=== PATIENT | male | born 1960 | race African-American/Black ===

== ENCOUNTER → 2018-12-27 | Outpatient (CLI) | payer OTHER ==
[~2018-12-27] VITALS: Ht 162.6 cm; Wt 78.5 kg
[~2018-12-27] MED LIST: AVINZA75 MG PO; DIAZEPAM10 M1 PO; FLUTICASONE PRO16 GM NASAL; LIPITOR10 MG PO; LISINOPRIL-HCT1 EAC1 PO; MS CONTIN 30 MG30 M1 PO; NABUMETONE 500500 M1 PO; NORTRIPTYLINE H25 M3 PO; NORTRIPTYLINE H50 MG PO; OXCARBAZEPINE150 MG PO; OXYCODON-ACETA1 EAC1 PO; OXYCODONE HCL15 MG PO; OXYCODONE-APAP1 EAC6 PO; OXYCODONE-APAP1 TAB PO; OXYCONTIN20 M1 PO; OXYCONTIN20 MG PO; OXYCONTIN30 MG PO; Oxycontin PO; PAXIL10 MG PO; PERCOCET 10-321 EACH PO; RELAFEN500 MG PO; REQUIP0.5 MG PO; TIZANIDINE HCL 22 M1 PO; TRILEPTAL150 MG PO; VIAGRA50 MG PO
--- NOTE | ~2018-12-27 | HPC ---
[facility] [place] [address] PAIN MANAGEMENT CONSULTATION Name: GARETH ALEGRIA Room #: OTF JuniorDaniela#: [id number] Admission: 12/27/18 ������������������ Attend Phys: Gonzalez Rosado MD Discharge: ������������������ Date of : 58 Report #: [id number] THIS REPORT FOR: //name// CC: TYRA Rosado DATE OF SERVICE: 12/27/2018 Followup visit for severe right ankle pain. The patient returns to pain clinic today complaining of pain in his right ankle. No other pain generators identified today. He has an arthritic ankle and has been on medications from Dr. Alegre for treatment of his chronic condition for many years. His highest dose of oxycodone was 30 mg twice daily, OxyContin plus OxyContin IR 15 mg 4 times daily, that was in 2013. I have been slowly tapering him per the CDC guidelines and I spent almost 25 minutes with him today to review our goals of reducing his opioid use to the lowest effective dose. He is making nice adjustments without significant problems, coming down to current dose of oxycodone 10/325 four times daily or 60 MME. This is a significant adjustment over the course of the last 5 years. On PQRS review, he has history of osteoarthritis involving the right ankle. His pain intensity reported today as stable 8/10. He is not a fall risk nor has he fallen in the last 3 months. He is not on blood thinning medications, although he does have a history of hypertension and he is under treatment from his primary care physician. He has completed an opioid risk assessment tool in the past. It was not repeated today. We will review his ORT from previous records. SOCIAL HISTORY: He denies use of tobacco. He drinks alcohol socially, 1 beer per week. PHYSICAL EXAMINATION: GENERAL: Pleasant 58-year-old. VITAL SIGNS: Blood pressure is 132/88, heart rate 90, respirations 14, his BMI is 29.7. EXTREMITIES: Moves easily from sitting to standing position, walks with mildly antalgic features. Examination of the right ankle reveals no specific swelling or tenderness. Joint range of motion is good. There is mild tenderness around the subtalar joint. IMPRESSION: Chronic ankle pain with osteoarthritis. RECOMMENDATIONS: 1. I think he should see an ankle specialist and I have recommended Dr. Mil Gil at . Dr. Gil is a personal physician and is considered one of the [facility] [address] [place] [address] PAIN MANAGEMENT CONSULTATION Name: GARETH ALEGRIA [place] Room #: [facility]#: [id number] Admission: 12/27/18 ������������������ Attend Phys: Gonzalez Rosado MD Discharge: ������������������ Date of : 58 Report #: [id number] [facility] [place]. He could give an opinion on his thoughts for treatment and also prognostication for the future. 2. I have spent a long time with him today discussing the CDC guidelines with diagrams and reviewing his morphine milligram equivalent dose. He has done very well in reducing his dose and I have made a recommendation that we reduce his dose once again from oxycodone 10/325 four times daily to oxycodone 7.5/325 four times daily. This would place his MME at 45. I will see him at 3-month intervals for this medication if it is effective. We talked extensively about the opioid crisis in the [facility] and the importance of safeguarding all medications. Other aspects of his agreement have been discussed including one prescribing physician and one pharmacy. We will manage any side effects, apparently, there are none at this point in time. I have talked to him extensively about other pain management techniques, particularly the importance of a daily walking program. This should be helpful for his ankle and should not actually worsen the condition in my opinion. He can use heat and nice and other nonsteroidal anti-inflammatory drugs, intermittently when the pain is severe. Followup visit planned in 3 months. Prescriptions were written under terms of our agreement. ��������������������������������������������� ���������������������������������������� By: ��������������������������������������������� [id number] Gonzalez Rosado MD /nt
[2018-12-27 08:58] VITALS: BP 132/88
--- NOTE | 2018-12-27 09:23 | NUR ---
Pain Clinic Assessment: 1. History of Osteoarthritis: History of Rheumatoid Arthritis: 2. Height: 5 ft. 4 in. 162.6 cm. Weight: 173.0 lb. oz. 78.472 kg. Patient's BMI: 29.7 3. Vital Signs: BP: 132/88 Pulse: 90 Resp: 14 Temp: 02 Sat: 96 ECG Mon: 4. Pain Intensity: 8 5. Fall Risk: Dizziness: N Needs help standing or walking: N Fallen in the last 3 months: N Fall risk comments: 6. Patient on Blood Thinner: None 7. History of Hypertension: Y 8. Opioid Therapy greater than 6 weeks: Y Opiate Contract Signed: 9. Risk Assessment Tool Provided: 10. Functional Assessment Tool: 11. Recreational Drug Use: Unknown Drug Type: Tobacco Use: Never Smoker Tobacco Type: Amount or Packs/day: How Many Years: Alcohol Use: Yes Frequency: Weekly Quant: 1 BEER
== END ==
LOC: PAIN 06:58
DX: M19.071 Primary osteoarthritis, right ankle and foot (principal); G89.29 Other chronic pain; Z79.891 Long term (current) use of opiate analgesic

== ENCOUNTER → 2019-04-04 | Outpatient (CLI) | payer OTHER ==
[~2019-04-04] VITALS: Ht 162.6 cm; Wt 90.7 kg
[~2019-04-04] MED LIST changes: +MOBIC7.5 MG PO
[2019-04-04 09:58] VITALS: BP 121/81
--- NOTE | 2019-04-04 10:34 | NUR ---
Pain Clinic Assessment: 1. History of Osteoarthritis: Not Applicable History of Rheumatoid Arthritis: Not Applicable 2. Height: 5 ft. 4 in. 162.6 cm. Weight: 200.0 lb. oz. 90.720 kg. Patient's BMI: 34.3 3. Vital Signs: BP: 121/81 Pulse: 74 Resp: 16 Temp: 02 Sat: 97 ECG Mon: 4. Pain Intensity: 8 5. Fall Risk: Dizziness: N Needs help standing or walking: N Fallen in the last 3 months: N Fall risk comments: 6. Patient on Blood Thinner: None 7. History of Hypertension: Y 8. Opioid Therapy greater than 6 weeks: Y Opiate Contract Signed: 9. Risk Assessment Tool Provided: LOW-1 10. Functional Assessment Tool: 42/60 11. Recreational Drug Use: Never Drug Type: Tobacco Use: Never Smoker Tobacco Type: Amount or Packs/day: How Many Years: Alcohol Use: Yes Frequency: Special Occasions Quant:
--- NOTE | 2019-04-05 11:30 | HPC ---
[facility] [place] [address] PAIN MANAGEMENT CONSULTATION Name: GARETH ALEGRIA Room #: OTF ALFORD Matteo#: [id number] Admission: 04/04/19 ������������������ Attend Phys: Liz Manzano Discharge: ������������������ Date of : 58 Report #: [id number] THIS REPORT FOR: //name// CC: Liz Rose DATE OF SERVICE: 04/04/2019 CHIEF COMPLAINT: Severe right ankle pain. HISTORY OF PRESENT ILLNESS: This is a pleasant 58-year-old gentleman who returned to the pain clinic today for his medication management that he uses to treat his right ankle pain. He does have an arthritic ankle that had surgery in the past and he has had ongoing pain ever since then. He tells me it is intermittent, achy, sharp pain in his heels and ankles, rating at 8/10 today, worse with standing and walking. His medication he does find helpful and also resting. He tells me that he tries to be as active as possible, but the pain makes him have to sit after a while. He tells me occasionally his pain will radiate up to his knees. He denies any problems with constipation or overmedicated feeling. He tells me he did not see Dr. Gil that Dr. Rosado had spoken of getting a second opinion from at since our last visit. ALLERGIES: THORAZINE AND OPANA. CURRENT MEDICATIONS: Oxycodone 7.5/325 up to 4 times a day, nortriptyline 25 mg at bedtime, Lipitor 10 mg at bedtime, Flonase as needed, Viagra as needed, lisinopril/hydrochlorothiazide daily, Valium 10 mg p.r.n., and oxcarbazepine 150 mg in the morning and 300 at night. PQRS: 1. He has history of osteoarthritis in his right ankle. He denies any rheumatoid arthritis. 2. Height is 5 feet 4 inches, weight is 200, BMI is 34. 3. Vital signs: Blood pressure 121/81, pulse is 74, respirations 16, oxygen sat is 97. 4. Pain score is 8/10. 5. Denies dizziness. He does not need help walking, has not fallen in the last 3 months. 6. The patient is not on any blood thinners. He does take medicine for hypertension. 7. Opiate therapy is greater than 6 weeks; therefore, an opioid signed contract is on the chart. His risk assessment tool is low. Functional assessment is 42/60. 8. Recreational drug use, he denies. He is not a smoker and does occasionally drink alcohol. [address] [address] PAIN MANAGEMENT CONSULTATION Name: GARETH ALEGRIA [id number] Admission: 04/04/19 ������������������ Attend Phys: Liz Manzano Discharge: ������������������ Date of : 58 Report #: [id number] We did check the prescription monitoring system. The patient is filling appropriately from our physician and he is due for his medication refill today. We will check a drug screen on him in the past since he does not have one on this chart, but he had been a patient at [facility], so I am unsure of his last screen. PHYSICAL EXAMINATION: GENERAL: This is a 58-year-old gentleman who is alert and orientated, appears his stated age and is a good historian. HEENT: Normocephalic, atraumatic. Extraocular eye muscles are intact. Mucous membranes are moist. EXTREMITIES: He moves easily from sitting to standing position, walks with a mildly antalgic gait. His right ankle reveals no swelling or tenderness. He has mild tenderness around his subtalar joint. IMPRESSION: 1. Chronic ankle pain with osteoarthritis. 2. Medication management under terms of written opioid agreement. We reviewed the fact that opiate medications are being used to provide analgesia adequate to support activities of daily living, not attempting to achieve a specific pain score on the 0-10 Visual Analog Scale. The current opiate medications are providing sufficient analgesia to allow the patient to participate in activities of daily living. The patient is not exhibiting any aberrant behavior suggestive of drug diversion. The patient is not having any adverse reactions to medications. The patient is not suffering from daytime somnolence or mental acuity changes. The patient is managing opiate-induced constipation with appropriate urhf-wkg-rfkttsu agents and dietary considerations. The patient was counseled on concern for caution with operating a motor vehicle while using opiate medications. A physical exam was performed and the patient's functional status was evaluated. All patients with back pain were advised against the bed rest greater than 4 days and were advised to return to normal activities. Pain score assessment was noted and the treatment plan was reviewed with the patient. All current medications, both prescribed and OTC were reviewed and reconciled on the electronic medical record. Tobacco screening was accomplished and smoking cessation was advised when indicated. BMI was noted and diet/exercise modification was recommended for all patients following outside normal parameters. I reviewed with the patient today their responsibilities to safeguard prescription medications, reviewed their responsibility to utilize medications only as prescribed by the physician. They are to seek and receive pain medications only from 1 physician group ([facility]). They are to use 1 pharmacy and keep the clinic informed if they change pharmacies. Their [address] [address] PAIN MANAGEMENT CONSULTATION Name: GARETH ALEGRIA Room #: [facility]#: [id number] Admission: 04/04/19 ������������������ Attend Phys: Liz Manzano Discharge: ������������������ Date of : 58 Report #: [id number] responsibilities include making followup visits in a timely fashion and to avoid abrupt discontinuation of medication usage. Their responsibilities further include bringing their medications (bottles from the pharmacy with residual pills) to the visit for possible confirmation of pill counts and the patient understands it is their responsibility to submit to random drug screens to ensure both that the medications prescribed are present, and that no other controlled substances are present. All prescriptions provided today were generated electronically. PLAN: 1. We discussed treatment options with the patient today. Dr. Rosado had encouraged the patient to get a second opinion, to see Dr. Gil at [facility]. Dr. Rosado did come and see the patient again today. He decided that he would not probably be a surgical candidate, so it was up to the patient if he did want a second opinion. 2. The patient tells me that he needs a refill of his oxcarbazepine. He was in the past taking 300 mg b.i.d., currently he has been taking 150 in the morning and 300 at night. He wishes a refill for that level though he has had increased pain. He wishes to stay at the lower dose. Script was given today for 90 pills with 2 additional refills. 3. The patient did discuss that we had decreased his opioids at his last visit. I discussed the CDC guidelines trying to keep people at 50 morphine milliequivalent or less. He is currently 45 at this current dose. The patient verbalizes understanding and agrees to stay at the current Percocet 7.5/325 four tablets a day. Scripts given for 3 months of this medication. 4. We did talk about an anti-inflammatory and elected to start meloxicam 7.5 mg b.i.d. The patient was instructed that if he did experience any GI discomfort, to stop taking the medication and not to take Aleve or ibuprofen while on this medication. The patient is seen in collaboration with Dr. Gonzalez Rosado who did see the patient today. ��������������������������������������������� <ELECTRONICALLY SIGNED> ���������������������������������������� By: Liz Manzano ��������������������������������������������� 04/05/19 1130 [id number] [id number] Liz Manzano /nt
== END ==
LOC: PAIN 06:44
DX: M19.071 Primary osteoarthritis, right ankle and foot (principal); G89.29 Other chronic pain; Z79.899 Other long term (current) drug therapy

== ENCOUNTER → 2019-07-04 | Outpatient (CLI) | payer OTHER ==
[~2019-07-04] VITALS: Ht 162.6 cm; Wt 87.5 kg
[2019-07-04 10:18] VITALS: BP 94/57
--- NOTE | 2019-07-04 10:20 | NUR ---
Pain Clinic Assessment: 1. History of Osteoarthritis: Not Applicable History of Rheumatoid Arthritis: Not Applicable 2. Height: 5 ft. 4 in. 162.6 cm. Weight: 193.0 lb. oz. 87.544 kg. Patient's BMI: 33.1 3. Vital Signs: BP: 94/57 Pulse: 86 Resp: 16 Temp: 02 Sat: 97 ECG Mon: 4. Pain Intensity: 8 5. Fall Risk: Dizziness: N Needs help standing or walking: N Fallen in the last 3 months: N Fall risk comments: 6. Patient on Blood Thinner: None 7. History of Hypertension: Y 8. Opioid Therapy greater than 6 weeks: Y Opiate Contract Signed: 9. Risk Assessment Tool Provided: LOW-1 10. Functional Assessment Tool: 42/60 11. Recreational Drug Use: Never Drug Type: Tobacco Use: Never Smoker Tobacco Type: Amount or Packs/day: How Many Years: Alcohol Use: Yes Frequency: Quant:
--- NOTE | 2019-07-05 07:28 | HPC ---
[facility] [address] [place] [address] PAIN MANAGEMENT CONSULTATION Name: GARETH ALEGRIA Room #: OTF ALFORD Matteo#: [id number] Admission: 07/04/19 ������������������ Attend Phys: Liz Manzano Discharge: ������������������ Date of : 58 Report #: [id number] THIS REPORT FOR: //name// CC: Liz Rose DATE OF SERVICE: 07/04/2019 CHIEF COMPLAINT: Severe right ankle pain. HISTORY OF PRESENT ILLNESS: This is a very pleasant 58-year-old gentleman who returns to the pain clinic today for refill of his medications that he uses to help treat his arthritic right ankle. He has had surgery in the past and has had ongoing pain that is intermittent, sharp, aching and tender. He tells me his pain score is an 8/10 today. It is bad because of the weather is changing. The last week, he was having decreased pain. It is worse with walking and standing, but he finds his Percocet and meloxicam very beneficial as well as his Trileptal. He would like a refill of these medications today. ALLERGIES: THORAZINE and OPANA. CURRENT LIST OF MEDICATIONS: Trileptal 150 mg 1 in the morning and 2 at night,. meloxicam 7.5 mg b.i.d. p.r.n., oxycodone 7.5 mg 4 times a day, nortriptyline 25 mg daily, atorvastatin 10 mg at bedtime, lisinopril/hydrochlorothiazide 20/12.5 daily, Valium 10 mg p.r.n. PATIENT'S PQRS: 1. He has osteoarthritis in his right ankle. Denies any rheumatoid arthritis. 2. Height is 5 feet 4 inches, weight is 193, which is down 7 pounds since his last visit. His BMI is 33. 3. Vital signs 94/57, pulse is 86, respirations 16, oxygen sat 97%. Pain score 8/10. 4. Fall risk. Denies dizziness, does not need help walking or standing, has not fallen in the last 3 months. The patient is not on any blood thinners, but does take medicine for hypertension. His opioid therapy is greater than 6 weeks; but his functional assessment is 42/60 and his risk assessment is low. 5. Recreational drug use, he denies. He is not a smoker and occasionally drinks alcohol. We did check the prescription monitoring system. He is filling appropriately for his medication and is due today. We will check a random drug screen on this patient today since it has been greater than one year. PHYSICAL EXAMINATION: GENERAL: This is a 58-year-old gentleman who is alert and orientated. He appears his stated age, placing his current pain score at 8/[place] [address] PAIN MANAGEMENT CONSULTATION Name: GARETH ALEGRIA [place] Room #: REG [place] Felipe#: [id number] Admission: 07/04/19 ������������������ Attend Phys: Liz Manzano Discharge: ������������������ Date of : 58 Report #: [id number] HEENT: Normocephalic, atraumatic. Extraocular muscles are intact. Mucous membranes are moist. He is wearing glasses. EXTREMITIES: He moves from sitting to standing without any difficulty. He does have a mild antalgic gait. No swelling in his right ankle today. He has mild tenderness in his subtalar joint. IMPRESSION: 1. Chronic ankle pain with osteoarthritis. 2. Management of medications under terms of written opioid agreement. We reviewed the fact that opiate medications are being used to provide analgesia adequate to support activities of daily living, not attempting to achieve a specific pain score on the 0-10 Visual Analog Scale. The current opiate medications are providing sufficient analgesia to allow the patient to participate in activities of daily living. The patient is not exhibiting any aberrant behavior suggestive of drug diversion. The patient is not having any adverse reactions to medications. The patient is not suffering from daytime somnolence or mental acuity changes. The patient is managing opiate-induced constipation with appropriate fhqg-mef-yjtykai agents and dietary considerations. The patient was counseled on concern for caution with operating a motor vehicle while using opiate medications. A physical exam was performed and the patient's functional status was evaluated. All patients with back pain were advised against the bed rest greater than 4 days and were advised to return to normal activities. Pain score assessment was noted and the treatment plan was reviewed with the patient. All current medications, both prescribed and OTC were reviewed and reconciled on the electronic medical record. Tobacco screening was accomplished and smoking cessation was advised when indicated. BMI was noted and diet/exercise modification was recommended for all patients following outside normal parameters. I reviewed with the patient today their responsibilities to safeguard prescription medications, reviewed their responsibility to utilize medications only as prescribed by the physician. They are to seek and receive pain medications only from 1 physician group ([facility]). They are to use 1 pharmacy and keep the clinic informed if they change pharmacies. Their responsibilities include making followup visits in a timely fashion and to avoid abrupt discontinuation of medication usage. Their responsibilities further include bringing their medications (bottles from the pharmacy with residual pills) to the visit for possible confirmation of pill counts and the patient understands it is their responsibility to submit to random drug screens to ensure both that the medications prescribed are present, and that no other controlled substances are present. All prescriptions provided today were generated electronically. [facility] [address] [place] [address] PAIN MANAGEMENT CONSULTATION Name: GARETH ALEGRIA Room #: OTF DhaliwalDanielaSchuylerDaniela#: [id number] Admission: 07/04/19 ������������������ Attend Phys: Liz Manzano Discharge: ������������������ Date of : 58 Report #: [id number] PLAN: 1. We discussed treatment options with the patient today. The patient is doing reasonably well on his medications. He is currently taking Percocet 7.5/325 four tablets a day. His current morphine milliequivalents is 45 according to the CDC guidelines. We will continue those for 3 additional months and scripts were written for 120 to be released today, 4-week and 8-week. 2. The patient to continue his Trileptal 150 mg 1 in the morning and 2 at night, 90 pills given with 2 additional refills. 3. The patient is not needing his meloxicam filled today. He does take that on as needed basis. He is conscientious about taking that medication with food because it does cause some GI discomfort for him, so therefore he does take it on an as needed basis, but finds it very beneficial when his pain does flare. 4. We will check a random drug screen on this patient today since it had been greater than a year since our records indicate one was given. 5. The patient tells me he has been drinking smoothies and trying to lose weight, which he has decreased 7 pounds since our last visit. I encouraged him to continue this since he tells me he is feeling good. 6. The patient is seen in collaboration with Dr. Gonzalez Rosado today. ��������������������������������������������� <ELECTRONICALLY SIGNED> ���������������������������������������� By: Liz Manzano ��������������������������������������������� 07/05/19 0728 [id number] Liz Manzano /nt
== END ==
LOC: PAIN 06:42
DX: M19.071 Primary osteoarthritis, right ankle and foot (principal); Z79.891 Long term (current) use of opiate analgesic; Z88.8 Allergy status to other drugs, medicaments and biological substances; Z79.899 Other long term (current) drug therapy

== ENCOUNTER → 2019-09-30 | Outpatient (CLI) | payer OTHER ==
[~2019-09-30] VITALS: Ht 162.6 cm; Wt 91.0 kg
[2019-09-30 10:45] VITALS: BP 121/85
--- NOTE | 2019-09-30 11:05 | NUR ---
Pain Clinic Assessment: 1. History of Osteoarthritis: Not Applicable History of Rheumatoid Arthritis: Not Applicable 2. Height: 5 ft. 4 in. 162.6 cm. Weight: 200.6 lb. oz. 90.992 kg. Patient's BMI: 34.4 3. Vital Signs: BP: 121/85 Pulse: 70 Resp: 16 Temp: 02 Sat: 97 ECG Mon: 4. Pain Intensity: 9 5. Fall Risk: Dizziness: N Needs help standing or walking: N Fallen in the last 3 months: N Fall risk comments: 6. Patient on Blood Thinner: None 7. History of Hypertension: Y 8. Opioid Therapy greater than 6 weeks: Y Opiate Contract Signed: 9. Risk Assessment Tool Provided: LOW-1 10. Functional Assessment Tool: 42/60 11. Recreational Drug Use: Never Drug Type: Tobacco Use: Never Smoker Tobacco Type: Amount or Packs/day: How Many Years: Alcohol Use: Yes Frequency: Quant:
--- NOTE | 2019-10-01 11:19 | HPC ---
[facility] [place] [address] PAIN MANAGEMENT CONSULTATION Name: GARETH ALEGRIA Room #: OTF JuniorDaniela#: [id number] Admission: 09/30/19 Attend Phys: Liz Manzano Discharge: Date of : 58 Report #: [id number] THIS REPORT FOR: //name// CC: Liz Rosado MD DATE OF SERVICE: 09/30/2019 CHIEF COMPLAINT: Right ankle pain. HISTORY OF PRESENT ILLNESS: This is a very pleasant 58-year-old gentleman who returns to the pain clinic today for refill of his medications that he uses to help treat his ongoing arthritic right ankle. He has had surgery in the past, but it continues to be quite problematic causing him intermittent achy and sharp pain, today it is also very tender. He is rating it a 9/10 today, worse with standing and walking, but since the weather does affect it that is why he is having increase in pain today. For part of the visit, he did have his shoe off, complaining of burning pain in his foot as well. He feels his medications are beneficial as well as resting. He denies any problems with constipation. He does report that he takes his medicine in a liquid form. He lets it dissolve and that helps prevent constipation per his report. I encouraged him to try to take it whole and just drink plenty of liquids so as not to alter the medication. ALLERGIES: THORAZINE and OPANA. CURRENT LIST OF MEDICATIONS: Oxycodone 7.5/325 q.i.d. p.r.n., Trileptal 150 in the morning and 300 at night, meloxicam p.r.n., nortriptyline, Lipitor, Flonase, lisinopril, and diazepam. PQRS: 1. He has arthritic right ankle. Denies any rheumatoid arthritis. 2. Height is 5 feet 4 inches, weight is 200, BMI is 34. 3. Vital signs 121/85, pulse is 70, respirations 16, oxygen sat is 97. 4. Pain score is 9/10. 5. Denies dizziness, does not need help walking or standing, has not fallen in the last 3 months. 6. Opioid therapy is greater than 6 weeks; therefore, an opioid signed contract is on the chart. Risk assessment tool is low. Functional assessment is 42/60. 7. Recreational drug use, he denies. He is not a smoker and occasionally drinks alcohol. According to the prescription monitoring system, the patient is filling appropriately at his pharmacy and is due to [place] [address] PAIN MANAGEMENT CONSULTATION Name: GARETH ALEGRIA Room #: REG Campbell Felipe#: [id number] Admission: 09/30/19 Attend Phys: Liz Manzano Discharge: Date of : 58 Report #: [id number] is a recent drug screen on the chart that is appropriate as well. The patient reports he does safeguard his medications. PHYSICAL EXAMINATION: GENERAL: This is alert and orientated 58-year-old gentleman who appears his stated age, placing his current pain score today at 9/10. He is a good historian. HEENT: Normocephalic, atraumatic. Extraocular eye muscles are intact. Mucous membranes are moist. EXTREMITIES: He moves from sitting to standing without difficulty. He has antalgic gait. He has tenderness and burning in his right ankle along the subtalar joint of his right ankle. No swelling noted today in his ankle. IMPRESSION: 1. Chronic ankle pain with osteoarthritis. 2. Multiple status post right ankle surgeries. 3. Management of high risk medications under terms of written opioid agreement. We reviewed the fact that opiate medications are being used to provide analgesia adequate to support activities of daily living, not attempting to achieve a specific pain score on the 0-10 Visual Analog Scale. The current opiate medications are providing sufficient analgesia to allow the patient to participate in activities of daily living. The patient is not exhibiting any aberrant behavior suggestive of drug diversion. The patient is not having any adverse reactions to medications. The patient is not suffering from daytime somnolence or mental acuity changes. The patient is managing opiate-induced constipation with appropriate qspe-ohv-ppiouwd agents and dietary considerations. The patient was counseled on concern for caution with operating a motor vehicle while using opiate medications. PLAN 1. We discussed treatment options with the patient today. The patient finds his medication very beneficial. We will refill his oxycodone 7.5/325 up to 4 tablets a day. This currently places him at 45 morphine mEq according to the CDC guidelines well under their 50 that they are encouraging. 2. We will refill this medicine for 3 months. 3. I will refill his Trileptal 150 mg 1 in the morning, 2 at night, #90 with 2 additional refills. The patient finds this very beneficial in the burning pain of his right foot. 4. I encouraged the patient not to dissolve his medication to take it as he states it helps with constipation. I encouraged him to take them whole and just to drink plenty of liquids to aid in his constipation issues. He verbalizes [facility] [address] [place] [address] PAIN MANAGEMENT CONSULTATION Name: GARETH ALEGRIA Room #: [facility] [id number] Admission: 09/30/19 Attend Phys: Liz Manzano Discharge: Date of : 58 Report #: [id number] understanding. 5. The patient is seen in collaboration with Dr. Gonzalez Rosado today. <ELECTRONICALLY SIGNED> By: Liz Manzano 10/01/19 1119 1132 2315 Liz Manzano /hiral
== END ==
LOC: PAIN 06:51
DX: M25.571 Pain in right ankle and joints of right foot (principal); M19.90 Unspecified osteoarthritis, unspecified site; Z79.891 Long term (current) use of opiate analgesic

== ENCOUNTER → 2019-12-30 | Outpatient (CLI) | payer OTHER ==
[~2019-12-30] VITALS: Ht 162.6 cm; Wt 88.6 kg
[2019-12-30 10:27] VITALS: BP 121/84
--- NOTE | 2019-12-30 10:50 | NUR ---
Pain Clinic Assessment: 1. History of Osteoarthritis: Not Applicable History of Rheumatoid Arthritis: Not Applicable 2. Height: 5 ft. 4 in. 162.6 cm. Weight: 195.4 lb. oz. 88.633 kg. Patient's BMI: 33.5 3. Vital Signs: BP: 121/84 Pulse: 81 Resp: 16 Temp: 02 Sat: 97 ECG Mon: 4. Pain Intensity: 8 5. Fall Risk: Dizziness: N Needs help standing or walking: N Fallen in the last 3 months: N Fall risk comments: 6. Patient on Blood Thinner: None 7. History of Hypertension: Y 8. Opioid Therapy greater than 6 weeks: Y Opiate Contract Signed: 03/23/10 9. Risk Assessment Tool Provided: mod-6 10. Functional Assessment Tool: 11. Recreational Drug Use: Never Drug Type: Tobacco Use: Never Smoker Tobacco Type: Amount or Packs/day: How Many Years: Alcohol Use: Yes Frequency: Special Occasions Quant: occasional beer
--- NOTE | 2019-12-31 08:06 | HPC ---
[facility] [place] [address] PAIN MANAGEMENT CONSULTATION Name: GARETH ALEGRIA Room #: REG ROCÍO JuniorDaniela#: [id number] Admission: 12/30/19 Attend Phys: Liz Manzano Discharge: Date of : 58 Report #: [id number] THIS REPORT FOR: cc: Stepan Kapadia MD, Todd MD Hocker,Liz MAYER ~ DATE OF SERVICE: 12/30/2019 CHIEF COMPLAINT: Right ankle pain. HISTORY OF PRESENT ILLNESS: This is a very pleasant 59-year-old gentleman who returns to the pain clinic today for refill of his medications for his right ankle pain. It does radiate upward towards his knee at times. Today, he is reporting an increase in pain due to weather changes at an 8/10. He currently has his shoe off due to the pressure on his ankle. His pain is increased with walking and standing. He does find the medication, especially the oxcarbazepine very beneficial in controlling his pain. He would like refills of this medication. He denies any problems with constipation or daytime sleepiness. The patient does inform us that his quite suddenly in September as a result of trauma. He has been trying to work through his grief and has ongoing process for him. He reports his pain has been increased slightly due to this as well. ALLERGIES: THORAZINE and OPANA. CURRENT MEDICATIONS: Oxycodone 7.5/325, oxcarbazepine 150 mg, meloxicam, nortriptyline, atorvastatin, Lipitor, hydrochlorothiazide, diazepam. PQRS: 1. He has arthritic changes in his ankle. Denies any rheumatoid arthritis. 2. Height is 5 feet 4 inches, weight is 195, BMI is 33. 3. Vital signs, 121/84, pulse is 81, respirations 16, oxygen sat is 97. Pain score 8/10. 4. Fall risk. Denies dizziness, does not need help walking or standing, has not fallen in the last 3 months. The patient is not on any blood thinners, does take medicine for hypertension. His opioid therapy is greater than 6 weeks; therefore, an opioid signed contract is on the chart. Risk assessment is moderate. Functional assessment is 41/70. 5. Recreational drug use, he denies. He is not a smoker and occasionally drinks alcohol. According to the prescription monitoring system, the patient has been filling his medications appropriately in a timely fashion by Dr. Gonzalez Rosado. His current morphine mEq per day according to the CDC guidelines of 45. He does [address] [address] PAIN MANAGEMENT CONSULTATION Name: GARETH ALEGRIA [facility] #: [facility]ilia[facility] [id number] Admission: 12/30/19 Attend Phys: Liz Manzano Discharge: Date of : 58 Report #: [id number] report he safeguards his meds at all times. There is a recent drug screen on the chart that is appropriate. It does show gabapentin, he was given out at the Emergency Room after a significant bee stings. PHYSICAL EXAMINATION: GENERAL: This is alert and orientated, slightly depressed 59-year-old gentleman who appears his stated age, placing his current pain score at 8/10 today. HEENT: Normocephalic, atraumatic. Extraocular eye muscles are intact. Mucous membranes are moist. EXTREMITIES: Has tenderness and burning in his right ankle, notes along his subtalar joint of his right ankle. No swelling noted. Tenderness from his shoe. Pain is increased with walking. He has slightly antalgic gait. IMPRESSION: 1. Chronic ankle pain with osteoarthritis. 2. Multiple surgeries of his right ankle with increased pain. 3. Management of high risk medications under terms of written opioid agreement. We reviewed the fact that opiate medications are being used to provide analgesia adequate to support activities of daily living, not attempting to achieve a specific pain score on the 0-10 Visual Analog Scale. The current opiate medications are providing sufficient analgesia to allow the patient to participate in activities of daily living. The patient is not exhibiting any aberrant behavior suggestive of drug diversion. The patient is not having any adverse reactions to medications. The patient is not suffering from daytime somnolence or mental acuity changes. The patient is managing opiate-induced constipation with appropriate ljvz-qhb-rxyomlj agents and dietary considerations. The patient was counseled on concern for caution with operating a motor vehicle while using opiate medications. A physical exam was performed and the patient's functional status was evaluated. All patients with back pain were advised against the bed rest greater than 4 days and were advised to return to normal activities. Pain score assessment was noted and the treatment plan was reviewed with the patient. All current medications, both prescribed and OTC were reviewed and reconciled on the electronic medical record. Tobacco screening was accomplished and smoking cessation was advised when indicated. BMI was noted and diet/exercise modification was recommended for all patients following outside normal parameters. I reviewed with the patient today their responsibilities to safeguard prescription medications, reviewed their responsibility to utilize medications only as prescribed by the physician. They are to seek and receive pain medications only from 1 physician group ([facility]). They are to use 1 pharmacy and keep the clinic informed if they change pharmacies. Their responsibilities include making followup visits in a timely fashion and to avoid [address] [address] PAIN MANAGEMENT CONSULTATION Name: GARETH ALEGRIA Room #: REG [facility]#: [id number] Admission: 12/30/19 Attend Phys: Liz Manzano Discharge: Date of : 58 Report #: [id number] abrupt discontinuation of medication usage. Their responsibilities further include bringing their medications (bottles from the pharmacy with residual pills) to the visit for possible confirmation of pill counts and the patient understands it is their responsibility to submit to random drug screens to ensure both that the medications prescribed are present, and that no other controlled substances are present. All prescriptions provided today were generated electronically. PLAN: 1. We discussed treatment options with the patient today. The patient finds his medication very beneficial, especially his Trileptal. He reports that significantly decreases his burning. It does help him with sleep at night as well. He would like refills of his medication. We will electronically send his oxcarbazepine 150 mg #90 with two additional refills. The patient takes 1 in the morning and 2 at night, oxycodone 7.5/325, #120 for 3 months. The patient is not currently needing meloxicam script today. 2. The patient is seen today in collaboration with Dr. Gonzalez Rosado who did see the patient as well. <ELECTRONICALLY SIGNED> By: Liz Manzano 12/31/19 0806 1133 2315 Liz Manzano /hiral
== END ==
LOC: PAIN 06:39
DX: M19.071 Primary osteoarthritis, right ankle and foot (principal); F11.20 Opioid dependence, uncomplicated; Z88.1 Allergy status to other antibiotic agents; Z88.8 Allergy status to other drugs, medicaments and biological substances; Z79.84 Long term (current) use of oral hypoglycemic drugs; Z79.899 Other long term (current) drug therapy

== ENCOUNTER → 2020-03-30 | Outpatient (CLI) | payer OTHER | LOC: PAIN 07:09 | DX: M19.071 Primary osteoarthritis, right ankle and foot (principal); G89.29 Other chronic pain; F11.90 Opioid use, unspecified, uncomplicated; Z88.8 Allergy status to other drugs, medicaments and biological substances; Z79.899 Other long term (current) drug therapy ==

== ENCOUNTER → 2020-06-23 | Outpatient (CLI) | payer OTHER ==
[~2020-06-23] VITALS: Ht 162.6 cm; Wt 83.4 kg
[2020-06-23 08:15] VITALS: BP 109/64
--- NOTE | 2020-06-23 14:09 | HPC ---
[facility] [place] [address] PAIN MANAGEMENT CONSULTATION Name: GARETH ALEGRIA Room #: OTF Felipe#: [id number] Admission: 06/23/20 Attend Phys: Liz Manzano Discharge: Date of : 58 Report #: [id number] THIS REPORT FOR: cc: Jaswant Rose MD, Michael B. MD Hocker,Liz MAYER ~ CC: Gonzalez Rosado MD DATE OF SERVICE: 06/23/2020 CHIEF COMPLAINT: Right ankle pain, bilateral leg pain. HISTORY OF PRESENT ILLNESS: This is a 59-year-old gentleman who returns to the pain clinic today for refill of his opioid medications that he uses to help treat his ongoing right ankle pain. Today, he is also complaining of bilateral leg pain. He feels that they are achy. He feels like his nerves are bothersome today in both his legs, rating his pain score of 10. He states it is worse with walking. The pain has been worse the past few weeks. He is today requesting an increase in his opioid medication. The patient tells me that he has been taking meloxicam only once a day and has been out of his nortriptyline from his primary care doctor. He does report some sexual dysfunction from the nortriptyline and does not like to take that on a regular basis. The patient also complains of some constipation issues today. ALLERGIES: THORAZINE AND OXYMORPHONE. CURRENT MEDICATIONS: Oxycodone 7.5/325 p.r.n., oxcarbazepine 150 mg in the morning and 300 at night, meloxicam, nortriptyline, atorvastatin, lisinopril/hydrochlorothiazide and diazepam. PQRS: 1. He has arthritic changes in his ankle. Denies any rheumatoid arthritis. 2. Height is 5 feet 4 inches, weight is 183, BMI is 31. Vital signs, 109/64, pulse is 103, respirations 16, oxygen sat is 100, pain score is 10/10. Fall risk: Denies dizziness, does not need help walking or standing, has not fallen in the last 3 months. The patient is not on blood thinners, but does take medicine for hypertension. His opioid therapy is greater than 6 weeks; therefore, an opioid signed contract is on the chart. Risk assessment is moderate. Functional assessment is 41/70. 3. Recreational drug use, he denies. He is not a smoker and occasionally drinks alcohol. According to the prescription monitoring system, the patient is filling appropriately with his medications. His morphine mEq is 45 MME per day according to the CDC guidelines. We will check a random drug screen of urine on [address] [address] PAIN MANAGEMENT CONSULTATION Name: OTF ALEGRIAJUAN ANTONIO Onofre Room #: OTF Felipe#: [id number] Admission: 06/23/20 Attend Phys: Liz Manzano Discharge: Date of : 58 Report #: [id number] this patient today. PHYSICAL EXAMINATION: GENERAL: This is a well-developed, well-nourished, alert and orientated 59-year-old gentleman who appears stated age, placing his current pain score 10/10. HEENT: Normocephalic, atraumatic. Extraocular eye muscles are intact. He is wearing a mask. EXTREMITIES: He has burning and tenderness in his bilateral legs today and pain in his right ankle along the subtalar joint. Pain is increased with ambulation. He has a slightly antalgic gait. He moves easily from a sitting to standing position. IMPRESSION: 1. Chronic ankle pain with osteoarthritis. 2. Management of high-risk medications under terms of written opioid agreement. We reviewed the fact that opiate medications are being used to provide analgesia adequate to support activities of daily living, not attempting to achieve a specific pain score on the 0-10 Visual Analog Scale. The current opiate medications are providing sufficient analgesia to allow the patient to participate in activities of daily living. The patient is not exhibiting any aberrant behavior suggestive of drug diversion. The patient is not having any adverse reactions to medications. The patient is not suffering from daytime somnolence or mental acuity changes. The patient is managing opiate-induced constipation with appropriate chcz-xwr-cyntuxd agents and dietary considerations. The patient was counseled on concern for caution with operating a motor vehicle while using opiate medications. PLAN: 1. We discussed treatment options with the patient today. I explained to him that we are not able to increase his opioid medications. He is where the CDC recommends he be. I encouraged him instead to use his meloxicam twice a day as prescribed. The patient has not been taking his full dose, see if that does decrease some of his inflammation in his back that may be causing numbness and tingling in his lower extremities. I also encouraged him to start his nortriptyline again. The patient reports some sexual dysfunction from that medication. I explained that maybe he can take that on an as needed basis, but also reminded him that opioids can cause some of those side effects as well. 2. I encouraged the patient to increase his fluid intake and possibly take a stool softener at night to help with some of his constipation issues that he is experiencing, reminding him as well increase in opioids would increase constipation issues. 3. Today, we will send his oxycodone 7.5/325, #120, to the pharmacy for today 4 and 8-week supply. These will be sent by Dr. Kenny Alegre who is covering for Dr. Rosado today. [facility] [address] [place] [address] PAIN MANAGEMENT CONSULTATION Name: GARETH ALEGRIA Room #: [facility]#: [id number] Admission: 06/23/20 Attend Phys: Liz Manzano Discharge: Date of : 58 Report #: [id number] 4. The patient did provide us with a urine specimen for a random screen today. The patient will return in followup in 3 months. At that time, I reminded him to make an patient appointment on the Dr. Rosado day and not Dr. Kenny Alegre who is covering today. <ELECTRONICALLY SIGNED> By: Liz Manzano 06/23/20 1409 [id number] [id number] Liz Manzano /hiral
== END ==
LOC: PAIN 06:49
PROVIDERS: ATTEND Clinical Nurse Specialist Adult Health
DX: M19.072 Primary osteoarthritis, left ankle and foot (principal); M79.604 Pain in right leg; M79.605 Pain in left leg; F11.20 Opioid dependence, uncomplicated; Z88.8 Allergy status to other drugs, medicaments and biological substances; Z79.899 Other long term (current) drug therapy

== ENCOUNTER → 2020-09-24 | Outpatient (CLI) | payer OTHER ==
--- NOTE | ~2020-09-24 | HPC ---
[facility] [place] [address] PAIN MANAGEMENT CONSULTATION Name: GARETH ALEGRIA Room #: OTF JuniorDaniela#: [id number] Admission: 09/24/20 Attend Phys: Liz Manzano Discharge: Date of : 58 Report #: [id number] THIS REPORT FOR: cc: Jaswant Rose MD, Michael B. MD Hocker, Amanda CNS ~ CC: Liz Rosado MD DATE OF SERVICE: 09/24/2020 This is a telemedicine appointment that the patient has consented to due to COVID symptoms from 09:45-10:05. CHIEF COMPLAINT: Right ankle pain, bilateral leg pain. HISTORY OF PRESENT ILLNESS: This is a very pleasant 59-year-old that I am speaking with via the telephone for his telemedicine appointment. The patient started experiencing a headache and has a cough in the last couple of days. He reports to me that he does have an appointment to be COVID tested on the that was his earliest appointment time for testing. He has not been running a fever. The patient states some of his symptoms have subsided slightly, but he is still going to follow up with testing. The patient does report to me a pain score of 8/10 today in his right ankle. He reports that it is worse due to the weather changes, which do aggravate his pain as well as prolonged standing and walking. He does believe the medications are beneficial as well as his adjunct medicines of meloxicam and Trileptal. The patient reports he recently started probiotics on a daily basis and feels that this has been very beneficial in helping any constipation issues and no longer taking any kxab-fgo-abvvizy medicines for constipation. ALLERGIES: THORAZINE AND OXYMORPHONE. CURRENT MEDICATIONS: Oxycodone 7.5/325, oxcarbazepine 150 in the morning and 300 at night, meloxicam, nortriptyline, atorvastatin, lisinopril/hydrochlorothiazide, diazepam and probiotic PQRS: 1. The patient has arthritic changes in his right ankle. Denies any rheumatoid arthritis. 2. Height, weight and vital signs are deferred due to a Telemed appointment. 3. The patient denies dizziness. He does not need help with walking, has not fallen in the last 3 months. The patient is not on any blood thinners, but he does [place] [address] PAIN MANAGEMENT CONSULTATION Name: GARETH ALEGRIA Room #: REG ROCÍO Matteo#: [id number] Admission: 09/24/20 Attend Phys: Liz Manzano Discharge: Date of : 58 Report #: [id number] 4. Opioid therapy is greater than 6 weeks; therefore, an opioid signed contract is on the chart. Risk assessment is moderate and functional assessment is 41/70. 5. The patient denies recreational drug use, he is not a smoker and occasionally drinks alcohol. According to the prescription monitoring system, the patient is due to fill his medications today. He does fill them in a timely fashion. He does take benzodiazepine and Valium from his primary doctor that he has been stable on as well and is cautious about the interactions. His morphine milliequivalent is 45 MME. PHYSICAL EXAMINATION: This is a review of systems. The patient reports a slight headache in his temporal area today and a nonproductive cough, also reports throbbing in his right ankle that is present today. IMPRESSION: 1. Chronic ankle pain with osteoarthritis. 2. Management of high risk medications under terms of written opioid agreement. 3. Possible COVID experiencing symptoms. We reviewed the fact that opiate medications are being used to provide analgesia adequate to support activities of daily living, not attempting to achieve a specific pain score on the 0-10 Visual Analog Scale. The current opiate medications are providing sufficient analgesia to allow the patient to participate in activities of daily living. The patient is not exhibiting any aberrant behavior suggestive of drug diversion. The patient is not having any adverse reactions to medications. The patient is not suffering from daytime somnolence or mental acuity changes. The patient is managing opiate-induced constipation with appropriate ejwc-nmo-wgwtjkb agents and dietary considerations. The patient was counseled on concern for caution with operating a motor vehicle while using opiate medications. PLAN: 1. We discussed treatment options with the patient today. The patient is planning on being tested for COVID on 09/26/2020. He will follow up with us to let us know if he is positive or negative, that is why we are doing a Telemed appointment today. Otherwise, he feels his medications have been very beneficial and would like to continue them. We will have Dr. Gonzalez Rosado send his oxycodone 7.5/325, #120 for today, 4-week and 8-week supply. He does safeguard his meds at all times and takes them appropriately. He is not needing meloxicam or oxcarbazepine. He has plenty of refills presently. 2. The patient will return in late November for an appointment and instructed [facility] [address] [place] [address] PAIN MANAGEMENT CONSULTATION Name: GARETH ALEGRIA Room #: OTF AL[place]ORD Matteo#: [id number] Admission: 09/24/20 Attend Phys: Liz Manzano Discharge: Date of : 58 Report #: [id number] to call when he fills his last electronic script. The patient discussed today Telemed in collaboration with Dr. Gonzalez Rosado. By: [id number] Liz Manzano /nt
== END ==
LOC: TELEPC 06:39 → PAIN 10:06 → TELEPC 13:43
PROVIDERS: ATTEND Clinical Nurse Specialist Adult Health
DX: M19.071 Primary osteoarthritis, right ankle and foot (principal); M79.605 Pain in left leg; F11.20 Opioid dependence, uncomplicated; Z88.8 Allergy status to other drugs, medicaments and biological substances; Z79.899 Other long term (current) drug therapy

== ENCOUNTER → 2020-12-21 | Outpatient (CLI) | payer OTHER ==
[~2020-12-21] VITALS: Ht 162.6 cm; Wt 89.7 kg
[~2020-12-21] MED LIST changes: +MELOXICAM7.5 MG PO; +MEN 50 PLUS MU1 EACH PO
[2020-12-21 09:58] VITALS: BP 123/81
--- NOTE | 2020-12-21 10:15 | NUR ---
Pain Clinic Assessment: 1. History of Osteoarthritis: DENIES History of Rheumatoid Arthritis: DENIES 2. Height: 5 ft. 4 in. 162.6 cm. Weight: 197.8 lb. oz. 89.722 kg. Patient's BMI: 33.9 3. Vital Signs: BP: 123/81 Pulse: 75 Resp: 16 Temp: 02 Sat: 97 ECG Mon: 4. Pain Intensity: 8 5. Fall Risk: Dizziness: N Needs help standing or walking: N Fallen in the last 3 months: N Fall risk comments: 6. Patient on Blood Thinner: None 7. History of Hypertension: Y 8. Opioid Therapy greater than 6 weeks: Y Opiate Contract Signed: 03/23/10 9. Risk Assessment Tool Provided: mod-6 10. Functional Assessment Tool: 11. Recreational Drug Use: Never Drug Type: Tobacco Use: Never Smoker Tobacco Type: Amount or Packs/day: How Many Years: Alcohol Use: Yes Frequency: Special Occasions Quant:
--- NOTE | 2020-12-22 08:21 | HPC ---
[facility] [address] [place] [address] PAIN MANAGEMENT CONSULTATION Name: AIRAMGARETH Onofre Room #: OTF JuniorDaniela#: [id number] Admission: 12/21/20 Attend Phys: Liz Manzano Discharge: Date of : 58 Report #: [id number] THIS REPORT FOR: cc: Jaswant Rose MD, Michael B. MD Hocker,Liz MAYER ~ DATE OF SERVICE: 12/21/2020 CHIEF COMPLAINT: Right ankle pain, bilateral leg pain. HISTORY OF PRESENT ILLNESS: This is a 60-year-old gentleman who returns to the pain clinic today for refill of his opioid medications that we follow him for. He reports that his pain is most significantly in his right ankle from his previous crush injury and surgery. He also reports some leg pain bilaterally. Gareth reports that in October, his foot was "stuck" for a day. He was having a specific spasm. He reports he has this several times a year. Gradually, it does return to its normal position. It does not cause any increased pain. He just reports it is frozen in one position per his report. His pain score is an 8/10 today, and is an aching constant pain and has been worse with weather changes and better with movement as well as medications. The patient does report he has recently started exercising again. He had noticed that his weight has been slowly increasing and today, it is 197, which is up significantly from his last visit of 183. Exercising does make him feel better per his report. The patient was seen in a telemedicine appointment in September due to being ill. He did test negative for COVID. He has not had the COVID vaccine yet, but he is on the list at several places in [place]. ALLERGIES: THORAZINE AND OPANA. CURRENT LIST OF MEDICATIONS: Multivitamin, oxycodone 7.5/325 q.i.d., oxcarbazepine, meloxicam, nortriptyline, atorvastatin, lisinopril/hydrochlorothiazide, and Valium. PQRS: 1. He has arthritic changes in his right ankle. Denies any rheumatoid arthritis. 2. Height is 5 feet 4 inches, weight is 197, BMI is 33. Vital signs 123/81, pulse is 75, respirations 16, oxygen sat is 97%. Pain score is 8/10. 3. Fall risk. Denies dizziness, does not need help walking, has not fallen in the last 3 months. The patient is not on any blood thinners, but does take medicine for hypertension. Opioid therapy is greater than 6 weeks; therefore, an opioid signed contract is on the chart. Risk assessment is moderate. Functional assessment is 41/70. 4. Recreational drug use, he denies. He is not a smoker and occasionally [address] [address] PAIN MANAGEMENT CONSULTATION Name: MIKEY ALEGRIANilson Onofre Room #: [facility]#: [id number] Admission: 12/21/20 Attend Phys: Liz Manzano Discharge: Date of : 58 Report #: [id number] drinks alcohol. According to the prescription monitoring system, he is due to fill his medications today. His morphine mEq is 45 MME according to the CDC guidelines. There is a drug screen on the chart that is appropriate as well for his medications. PHYSICAL EXAMINATION: GENERAL: This is alert and orientated, well-developed, well-nourished 60-year-old gentleman who appears his stated age, rating his pain score today at 8/10. HEENT: Normocephalic, atraumatic. Extraocular eye muscles are intact. Mucous membranes are moist. He is wearing a mask. EXTREMITIES: He moves easily from the sitting to standing position. He has mildly antalgic features when he ambulates. Right ankle reveals no swelling or tenderness. He has good joint range of motion with mild tenderness around the subtalar joint. Lower extremity strength is symmetrical at 5/5. IMPRESSION: 1. Chronic ankle pain with osteoarthritis. 2. Management of high risk medications under written opioid agreement. We reviewed the fact that opiate medications are being used to provide analgesia adequate to support activities of daily living, not attempting to achieve a specific pain score on the 0-10 Visual Analog Scale. The current opiate medications are providing sufficient analgesia to allow the patient to participate in activities of daily living. The patient is not exhibiting any aberrant behavior suggestive of drug diversion. The patient is not having any adverse reactions to medications. The patient is not suffering from daytime somnolence or mental acuity changes. The patient is managing opiate-induced constipation with appropriate hiyk-fnx-eqwoyuv agents and dietary considerations. The patient was counseled on concern for caution with operating a motor vehicle while using opiate medications. A physical exam was performed and the patient's functional status was evaluated. All patients with back pain were advised against the bed rest greater than 4 days and were advised to return to normal activities. Pain score assessment was noted and the treatment plan was reviewed with the patient. All current medications, both prescribed and OTC were reviewed and reconciled on the electronic medical record. Tobacco screening was accomplished and smoking cessation was advised when indicated. BMI was noted and diet/exercise modification was recommended for all patients following outside normal parameters. I reviewed with the patient today their responsibilities to safeguard prescription medications, reviewed their responsibility to utilize medications [address] [place] [address] PAIN MANAGEMENT CONSULTATION Name: GARETH ALEGRIA Room #: REG [facility].#: [id number] Admission: 12/21/20 Attend Phys: Liz Manzano Discharge: Date of : 58 Report #: [id number] only as prescribed by the physician. They are to seek and receive pain medications only from 1 physician group ( [facility]). They are to use 1 pharmacy and keep the clinic informed if they change pharmacies. Their responsibilities include making followup visits in a timely fashion and to avoid abrupt discontinuation of medication usage. Their responsibilities further include bringing their medications (bottles from the pharmacy with residual pills) to the visit for possible confirmation of pill counts and the patient understands it is their responsibility to submit to random drug screens to ensure both that the medications prescribed are present, and that no other controlled substances are present. All prescriptions provided today were generated electronically. PLAN: 1. We discussed treatment options with the patient today. The patient reports doing quite well on his current regimen of medications, his opioids, and his adjunct medications. He needs refills of all his medications today. He denies any constipation or somnolence or GI upset from his medications. Scripts sent electronically today for meloxicam 7.5, #60, with five additional refills, oxcarbazepine 150 mg, one in the morning, two at night, #90 with five refills and his oxycodone 7.5/325, #120, for today, 4 and 8-week release. 2. We did discuss the COVID vaccine. He was thankful he did not test positive for COVID. He has had family members from the virus. He is on several lists and hopefully we will hear this week if he is able to go to a [facility] and be vaccinated. 3. The patient will return in 3 months for prescription refills. The patient is seen today in collaboration with Dr. Gonzalez Rosado. <ELECTRONICALLY SIGNED> By: Liz Manzano 12/22/20 0821 [id number] Liz Manzano /nt
== END ==
LOC: PAIN 06:50
PROVIDERS: ATTEND Clinical Nurse Specialist Adult Health
DX: M19.90 Unspecified osteoarthritis, unspecified site (principal); G89.29 Other chronic pain; Z79.891 Long term (current) use of opiate analgesic; Z79.899 Other long term (current) drug therapy

== ENCOUNTER → 2021-03-25 | Outpatient (CLI) | payer OTHER ==
[~2021-03-25] VITALS: Ht 162.6 cm; Wt 87.5 kg
[~2021-03-25] MED LIST changes: +BREO ELLIPTA 11 EACH INH; +ENDOCET 7.5-321 EACH PO; +NARCAN4 MG NARES
[2021-03-25 10:00] VITALS: BP 119/94
--- NOTE | 2021-03-25 10:07 | NUR ---
Pain Clinic Assessment: 1. History of Osteoarthritis: DENIES History of Rheumatoid Arthritis: DENIES 2. Height: 5 ft. 4 in. 162.6 cm. Weight: 193.0 lb. oz. 87.544 kg. Patient's BMI: 33.1 3. Vital Signs: BP: 119/94 Pulse: 87 Resp: 16 Temp: 02 Sat: 97 ECG Mon: 4. Pain Intensity: 9 5. Fall Risk: Dizziness: N Needs help standing or walking: N Fallen in the last 3 months: N Fall risk comments: 6. Patient on Blood Thinner: None 7. History of Hypertension: Y 8. Opioid Therapy greater than 6 weeks: Y Opiate Contract Signed: 03/23/10 9. Risk Assessment Tool Provided: mod-4 10. Functional Assessment Tool: 11. Recreational Drug Use: Never Drug Type: Tobacco Use: Never Smoker Tobacco Type: Amount or Packs/day: How Many Years: Alcohol Use: No Frequency: Quant:
== END ==
LOC: PAIN 07:04
PROVIDERS: ATTEND Anesthesiology Pain Medicine
DX: G89.29 Other chronic pain (principal); M79.641 Pain in right hand; I10 Essential (primary) hypertension; F41.8 Other specified anxiety disorders; Z68.31 Body mass index [BMI] 31.0-31.9, adult; Z88.8 Allergy status to other drugs, medicaments and biological substances; Z98.890 Other specified postprocedural states; Z79.891 Long term (current) use of opiate analgesic; Z79.899 Other long term (current) drug therapy

== ENCOUNTER → 2021-06-14 | Outpatient (CLI) | payer OTHER ==
[~2021-06-14] VITALS: Ht 162.6 cm; Wt 87.5 kg
[~2021-06-14] MED LIST changes: +GABAPENTIN600 M1 PO
[2021-06-14 09:03] VITALS: BP 127/85
--- NOTE | 2021-06-14 09:17 | NUR ---
Pain Clinic Assessment: 1. History of Osteoarthritis: DENIES History of Rheumatoid Arthritis: DENIES 2. Height: 5 ft. 4 in. 162.6 cm. Weight: 193.0 lb. oz. 87.544 kg. Patient's BMI: 33.1 3. Vital Signs: BP: 127/85 Pulse: 83 Resp: 14 Temp: 02 Sat: 96 ECG Mon: 4. Pain Intensity: 7 5. Fall Risk: Dizziness: N Needs help standing or walking: N Fallen in the last 3 months: N Fall risk comments: 6. Patient on Blood Thinner: None 7. History of Hypertension: Y 8. Opioid Therapy greater than 6 weeks: Y Opiate Contract Signed: 03/23/10 9. Risk Assessment Tool Provided: mod-4 10. Functional Assessment Tool: 11. Recreational Drug Use: Never Drug Type: Tobacco Use: Never Smoker Tobacco Type: Amount or Packs/day: How Many Years: Alcohol Use: No Frequency: Quant:
== END ==
LOC: PAIN 07:01
PROVIDERS: ATTEND Clinical Nurse Specialist Adult Health
DX: M25.571 Pain in right ankle and joints of right foot (principal); G89.29 Other chronic pain; M19.90 Unspecified osteoarthritis, unspecified site; F41.9 Anxiety disorder, unspecified; F32.9 Major depressive disorder, single episode, unspecified; Z79.891 Long term (current) use of opiate analgesic; Z79.899 Other long term (current) drug therapy; Z88.5 Allergy status to narcotic agent; Z88.8 Allergy status to other drugs, medicaments and biological substances

== ENCOUNTER → 2021-09-23 | Outpatient (CLI) | payer OTHER ==
[~2021-09-23] VITALS: Ht 162.6 cm; Wt 90.1 kg
[2021-09-23 10:11] VITALS: BP 114/77
--- NOTE | 2021-09-23 10:32 | NUR ---
Pain Clinic Assessment: 1. History of Osteoarthritis: rt ankle History of Rheumatoid Arthritis: DENIES 2. Height: 5 ft. 4 in. 162.6 cm. Weight: 198.6 lb. oz. 90.084 kg. Patient's BMI: 34.1 3. Vital Signs: BP: 114/77 Pulse: 83 Resp: 16 Temp: 02 Sat: 100 ECG Mon: 4. Pain Intensity: 7 5. Fall Risk: Dizziness: N Needs help standing or walking: N Fallen in the last 3 months: N Fall risk comments: 6. Patient on Blood Thinner: None 7. History of Hypertension: Y 8. Opioid Therapy greater than 6 weeks: Y Opiate Contract Signed: 03/23/10 9. Risk Assessment Tool Provided: mod-4 10. Functional Assessment Tool: 11. Recreational Drug Use: Never Drug Type: Tobacco Use: Never Smoker Tobacco Type: Amount or Packs/day: How Many Years: Alcohol Use: No Frequency: Quant:
== END ==
LOC: PAIN 06:54
PROVIDERS: ATTEND Clinical Nurse Specialist Adult Health
DX: G89.29 Other chronic pain (principal); G56.01 Carpal tunnel syndrome, right upper limb; F41.8 Other specified anxiety disorders; Z88.8 Allergy status to other drugs, medicaments and biological substances; Z79.899 Other long term (current) drug therapy

== ENCOUNTER → 2021-12-20 | Outpatient (CLI) | payer OTHER ==
[~2021-12-20] VITALS: Ht 162.6 cm; Wt 94.3 kg
[2021-12-20 09:21] VITALS: BP 121/88
--- NOTE | 2021-12-20 09:25 | NUR ---
Pain Clinic Assessment: 1. History of Osteoarthritis: rt ankle History of Rheumatoid Arthritis: DENIES 2. Height: 5 ft. 4 in. 162.6 cm. Weight: 208.0 lb. oz. 94.348 kg. Patient's BMI: 35.7 3. Vital Signs: BP: 121/88 Pulse: 86 Resp: 16 Temp: 02 Sat: 96 ECG Mon: 4. Pain Intensity: 8 5. Fall Risk: Dizziness: N Needs help standing or walking: N Fallen in the last 3 months: N Fall risk comments: 6. Patient on Blood Thinner: None 7. History of Hypertension: Y 8. Opioid Therapy greater than 6 weeks: Y Opiate Contract Signed: 03/23/10 9. Risk Assessment Tool Provided: mod-4 10. Functional Assessment Tool: 11. Recreational Drug Use: Never Drug Type: Tobacco Use: Never Smoker Tobacco Type: Amount or Packs/day: How Many Years: Alcohol Use: No Frequency: Quant:
== END ==
LOC: PAIN 08:17
PROVIDERS: ATTEND Clinical Nurse Specialist Adult Health
DX: G89.29 Other chronic pain (principal); M25.571 Pain in right ankle and joints of right foot; M19.90 Unspecified osteoarthritis, unspecified site; F41.9 Anxiety disorder, unspecified; F34.9 Persistent mood [affective] disorder, unspecified; Z87.891 Personal history of nicotine dependence; Z88.8 Allergy status to other drugs, medicaments and biological substances; Z79.899 Other long term (current) drug therapy